=== PATIENT | female | born 1985 | race Caucasian/White ===

== ENCOUNTER 2019-04-27 16:30 | Inpatient (IN) | payer MEDICAID ==
[~2019-04-27] VITALS: Ht 165.1 cm; Wt 86.5 kg
[2019-04-27] MEDS ORDERED: LACTATED RINGER'S 1,000 ML IV PRN (22:20)
[2019-04-27] MEDS ORDERED: LIDOCAINE 1% (MPF) 30 ML INJ INJ PRN (22:30)
[2019-04-27] MEDS ORDERED: MISOPROSTOL 200 MCG TAB PR PRN (22:30)
[2019-04-27] MEDS ORDERED: OXYTOCIN 30 UNITS/LR 500 ML IV PRN (22:30)
[2019-04-27] MEDS ORDERED: BUTORPHANOL 2 MG INJ IV PRN (22:30)
[2019-04-27] MEDS ORDERED: OXYTOCIN 30 UNITS/LR 500 ML IV SCH (22:30)
[2019-04-27] MEDS ORDERED: CARBOPROST 250 MCG INJ IM PRN (22:30)
[2019-04-27] MEDS ORDERED: IBUPROFEN 600 MG TAB PO PRN (22:30)
[2019-04-27] MEDS ORDERED: AMPICILLIN 2 GM/NS (PMX) 100 ML IV ONE (22:30)
[2019-04-27] MEDS ORDERED: METHYLERGONOVINE 0.2 MG INJ IM PRN (22:30)
[2019-04-27] MEDS: LACTATED RINGER'S 1,000 ML IV SCH (23:14)
[2019-04-27 23:16] VITALS: BP 122/75; PULSE 90; RESP 18
[2019-04-27 23:18] VITALS: Ht 165.1 cm; Wt 86.5 kg
[2019-04-28] MEDS: MISOPROSTOL 50 MCG CAPSULE PO PRN ×4 (01:15→13:07)
[2019-04-28] MEDS: AMPICILLIN 1 GM/NS (PMX) 50 ML IV SCH ×5 (05:29→21:11)
[2019-04-28] MEDS: LACTATED RINGER'S 1,000 ML IV SCH ×2 (07:58→17:13)
--- NOTE | 2019-04-28 15:56 | PREAC ---
Date/Time of Note Date/Time of Note DATE: 04/28/19 TIME: 15:55 Anesthesia Eval and Record Evaluation Time Pre-Procedure Interview DATE: 04/28/19 TIME: 15:55 Age 34 Sex female NPO: 8 hrs Preoperative diagnosis LABOR PIAN Planned procedure LABOR EPIDURAL Past Medical History Past Medical History: Includes GI: Obesity : : (4), Para: (3), Gestational age: (40 5/7 WKS) Surgery & Anesthesia Issues No known issue Meds Anticoagulation: No Beta Yoandy within 24 hr: No Reason Beta Yoandy not given: Pt. not on B-Yoandy Current Medications Lactated Ringer's 1,000 ml @ 125 mls/hr Q8H IV Last administered on 04/28/19at 07:58; Admin Dose 125 MLS/HR; Start 04/27/19 at 22:20 Ampicillin 50 ml @ 100 mls/hr Q4H IV Last administered on 04/28/19at 13:07; Admin Dose 100 MLS/HR; Start 04/28/19 at 02:30 Butorphanol Tartrate (Stadol) 2 mg Q2H PRN IV .PAIN SCALE 6-10; Start 04/27/19 at 22:30 Lidocaine (Xylocaine 1% (Mpf)) 30 ml ONCE PRN INJ .EPISIOTOMY; Start 04/27/19 at 22:30 Oxytocin/Lactated Ringer's 500 ml @ 500 mls/hr ONCE POST IV ; Start 04/27/19 at 22:30 Oxytocin/Lactated Ringer's 500 ml @ 125 mls/hr POST IV ; Start 04/27/19 at 22:30 Ibuprofen (Motrin) 600 mg ONCE PRN PO .PAIN 1-5; Start 04/27/19 at 22:30 Lactated Ringer's 1,000 ml @ 2,000 mls/hr Q30M PRN IV .ANESTHESIA Last admi nistered on 04/28/19at 15:37; Admin Dose 2,000 MLS/HR; Start 04/27/19 at 22:20 Oxytocin/Lactated Ringer's 500 ml @ 0 mls/hr ONCE PRN IV .VAGINAL BLEEDING; Start 04/27/19 at 22:30 Methylergonovine Maleate (Methergine) 0.2 mg ONCE PRN IM .VAGINAL BLEEDING; Start 04/27/19 at 22:30 Carboprost Tromethamine (Hemabate) 250 mcg ONCE PRN IM .VAGINAL BLEEDING; Start 04/27/19 at 22:30 Misoprostol (Cytotec) 1,000 mcg ONCE PRN [place] .VAGINAL BLEEDING; Start 04/27/19 at 22:30 Misoprostol (Cytotec 50 Mcg Capsule) 50 mcg Q4H PRN PO CERVICAL RIPENING Last administered on 04/28/19at 13:07; Admin Dose 50 MCG; Start 04/28/19 at 01:30 Meds reviewed: Yes Allergies Coded Allergies: No Known Allergies (Verified Allergy, Unknown, 04/27/19) Allergies Reviewed: Yes Labs/Studies Labs Reviewed: Reviewed by anesthesiologist Result Diagram: 04/27/19 2310 Laboratory Tests 04/27/19 23:10 Blood Bank Test 04/27/19 23:10 Antibody Screen NEGATIVE Blood Type O POSITIVE Rh Immune Globulin Candidate NO test: N/A Pre-procedure Exam Last vitals Vital Signs Date Temp Pulse Resp B/P (MAP) Pulse Ox O2 O2 Flow FiO2 Time Delivery Rate 04/27/19 98.8 90 18 122/75 Room Air 23:16 (91) Airway: Adequate mouth opening, Adequate thyromental dist Mallampati: Mallampati II Teeth: Normal Lung: Normal Heart: Normal ASA Physical Status ASA physical status: 2 Emergency: None Planned Anesthetic Neuraxial: Epidural Planned Pain Management Epidural Pre-operative Attestations Prior to commencing anesthesia and surgery, the patient was re-evaluated, there was verification of: *The patient's identity *The results of appropriate recent lab work and preoperative vital signs *The above evaluation not changing prior to induction *Anesthetic plan, risk benefits, alternative and complications discussed with patient/family; questions answered; patient/family understands, accepts and wishes to proceed. Fuentes Wiggins M.D. Apr 28, 2019 15:56
[2019-04-28] MEDS ORDERED: NALOXONE (0.4 MG/ML) INJ IV PRN ×2 (16:00→20:00)
[2019-04-28] MEDS ORDERED: DIPHENHYDRAMINE 50 MG INJ IV PRN ×2 (16:00→20:00)
[2019-04-28] MEDS ORDERED: ONDANSETRON 4 MG INJ IV PRN ×2 (16:00→20:00)
[2019-04-28] MEDS ORDERED: TRIMETHOBENZAMIDE 100 MG/ML VIAL IM PRN ×2 (16:00→20:00)
[2019-04-28] MEDS ORDERED: FENTAnyl 2MCG/ML-ROPIV 0.2% 100 ML ONE (16:11)
--- NOTE | 2019-04-28 16:32 | PAC ---
Date/Time of Note Date/Time of Note DATE: 04/28/19 TIME: 16:32 Post-Anesthesia Notes Post-Anesthesia Note Last documented vital signs Vital Signs Date Temp Pulse Resp B/P (MAP) Pulse Ox O2 O2 Flow FiO2 Time Delivery Rate 04/27/19 98.8 90 18 122/75 Room Air 23:16 (91) Activity: WNL Respiratory function: WNL Cardiovascular function: WNL Mental status: Baseline Pain reasonably controlled: Yes Hydration appropriate: Yes Nausea/Vomiting absent: Yes Fuentes Wiggins M.D. Apr 28, 2019 16:32
[2019-04-28] MEDS ORDERED: FENTAnyl 2MCG/ML-ROPIV 0.2% 100 ML BAG EPI SCH (20:00)
--- NOTE | 2019-04-28 21:05 | HP ---
DATE OF ADMISSION: 04/27/2019 HISTORY OF PRESENT ILLNESS: Ms. Lisa Hebert is a 34-year-old 4, para 3, EDC of 04/23/2019 intrauterine at 40 weeks and 5 days gestational age, was admitted for post-EDC induction, c urrently on Cytotec for cervical ripening. She denies any headache, nausea, vomiting, shortness of b reath or visual changes. She had her care at [facility]. PAST MEDICAL HISTORY: None. MEDICATIONS: vitamins. PAST SURGICAL HISTORY: None. OBSTETRIC HISTORY: x3 vaginal deliveries. GYNECOLOGIC HISTORY: 12, regular 3 to 4 days. Denies any sexually transmitted infections. Sexually active with 1 partner. SOCIAL HISTORY: Denies any smoking, drugs or alcohol. FAMILY HISTORY: None. REVIEW OF SYSTEMS: All within normal except history of present illness. PHYSICAL EXAMINATION: HEENT: Within normal. LUNGS: CTA bilateral. CARDIOVASCULAR: S1, S2. Regular rate, rhythm. ABDOMEN: Gravid, nontender. Negative CVA bilateral. EXTREMITIES: Negative edema. No calf tenderness. PELVIC: Vaginal exam: 9 cm dilated, 100% effaced, -1 station. heart tracing category 1. Venancio o: Regular contractions. ASSESSMENT: Intrauterine at term in labor. PLAN: Anticipate vaginal delivery. Dictated By: RITU BORGES/NEREIDA Conf#: [id number] DID#: [id number]
[2019-04-28] MEDS: OXYTOCIN 30 UNITS/LR 500 ML IV SCH (23:44)
[2019-04-28] MEDS ORDERED: OXYTOCIN 30 UNITS/LR 500 ML IV SCH (23:45)
--- NOTE | 2019-04-28 23:45 | LDN ---
Date/Time of Note Date/Time of Note DATE: 04/28/19 TIME: 23:43 Delivery Summary Weeks of Gestation 40 Placenta Delivered: Spontaneously Meconium: none Perineal laceration: 1 Laceration repair: 1st degree perineal laceration repair with 4-0 chromic Anesthesia type: Epidural Estimated blood loss: 300 Sponge & Needle done & correct: Yes All needle counts correct: Yes Any foreign bodies felt in the: No Infant Delivery Information Sex Infant Sex: male Apgars 1 Minute: 8 5 Minute: 9 10 Minute: 9 Suctioning Nose & mouth suctioned at leon: No Delee suction performed: No Umbilical Cord Umbilical cord with: 3 Vessels Cord presentations: no nuchal cord Cord Blood was obtained: Yes RITU STEVENSON MD Apr 28, 2019 23:45
[2019-04-29] MEDS ORDERED: OXYCODONE/ASPIRIN (4.88/325) TAB PO PRN ×2
[2019-04-29] MEDS ORDERED: CARBOPROST 250 MCG INJ IM PRN
[2019-04-29] MEDS ORDERED: OXYTOCIN 30 UNITS/LR 500 ML IV PRN
[2019-04-29] MEDS ORDERED: MISOPROSTOL 200 MCG TAB PR PRN
[2019-04-29] MEDS ORDERED: NACL 0.9% 3 ML SYG IV SCH
[2019-04-29] MEDS ORDERED: METHYLERGONOVINE 0.2 MG INJ IM PRN
[2019-04-29] MEDS ORDERED: ONDANSETRON 4 MG INJ IV PRN
[2019-04-29] MEDS: OXYTOCIN 30 UNITS/LR 500 ML IV SCH (00:28)
[2019-04-29 01:20] VITALS: BP 121/71; PULSE 85; RESP 18
[2019-04-29 04:00] VITALS: BP 128/63; PULSE 83; RESP 19
[2019-04-29] MEDS: WITCH HAZEL/GLYCERIN PAD PR PRN (04:38)
[2019-04-29] MEDS: BENZOCAINE 20% 56 ML SPRAY TOP PRN (04:38)
[2019-04-29] MEDS: IBUPROFEN 600 MG TAB PO SCH ×4 (04:38→17:56)
[2019-04-29 08:00] VITALS: BP 106/63; PULSE 80; RESP 18
[2019-04-29] MEDS: SENNA/DOCUSATE NA (8.6MG/50MG) TAB PO SCH (08:57)
--- NOTE | 2019-04-29 11:33 | DS ---
Date/Time of Note Date/Time of Note DATE: 04/29/19 TIME: 11:32 Obstetrical Discharge Record Final Diagnosis Final Diagnosis: Term delivered Vaginal Delivery Obstetrical Delivery: Spontaneous, Laceration, Repaired Condition on Discharge Physical Assessment Last Vitals: stable afebrile Voiding: Yes Bowel Movement: Yes Breast: Soft, non-tender, Filling Fundus: Firm Abdomen and Incision: soft nt Calf Tenderness: No Patient Condition: Fair RITU STEVENSON MD Apr 29, 2019 11:33
--- NOTE | 2019-04-29 11:33 | PD.PPDC ---
WRAP CHECKER Discharge Instruction Condition [id number] Patient Condition: Oufft8c Fair Diet [id number] Diet: Vnwqm0x Resume Regular Diet Activity/Restrictions [id number] Activity: [id number] Normal Activity May Shower [id number] Restrictions: [id number] No Exercising No Lifting No Driving No Sexual Activity Nothing in the Vagina No Kevil No Tampons, douche Follow-up Follow-up with Physician: 3, Week/Weeks Return to clinic for [id number] DENTAL LABORATORY WORKER Instructions: [id number] Fever greater than 101 Chills Worsening abdominal pain Excessive Vaginal Bleeding More than 2 pads per hour Unable to tolerate diet [id number] OB Instructions: Vnprd6f Breast Tenderness Depression Blurried Vision Headache [id number] Surgical Instructions: Eptxq9g Incisional Drainage Incisional Redness RITU STEVENSON MD Apr 29, 2019 11:33
[2019-04-29 12:00] VITALS: BP 103/58; PULSE 64; RESP 18
[2019-04-29 15:50] VITALS: BP 90/51; PULSE 79; RESP 18
[2019-04-29 19:51] VITALS: BP 101/61; PULSE 82; RESP 18
[2019-04-30] MEDS: SENNA/DOCUSATE NA (8.6MG/50MG) TAB PO SCH ×2 (00:07→08:58)
[2019-04-30] MEDS: IBUPROFEN 600 MG TAB PO SCH ×3 (00:07→12:39)
[2019-04-30 04:09] VITALS: BP 109/63; PULSE 80; RESP 18
[2019-04-30 08:00] VITALS: BP 88/50; PULSE 73; RESP 20
[2019-04-30] MEDS: WITCH HAZEL/GLYCERIN PAD PR PRN (12:38)
[2019-04-30] MEDS: BENZOCAINE 20% 56 ML SPRAY TOP PRN (12:38)
--- NOTE | 2019-05-01 16:10 | DELSUM ---
Delivery Summary A-C Datetime Report Generated by CPN: 05/01/2019 16:10 DELIVERY PERSONNEL Slps: Marquez, Maria M MATERNAL INFORMATION Delivery Anesthesia: Epidural Medications in Delivery: Pitocin 30units in 500mL LR, Methergine 0.2mg IM Delivery QBL (ml): 300 Placenta Cultured: No Maternal Complications: None Other Maternal Complications: GBS+ LABOR SUMMARY EDC: 04/23/2019 00:00 No. Babies in Womb: 1 Attempted: No Labor Anesthesia: Epidural LABOR INFORMATION Reason for Induction: Postterm Onset of Labor: 04/28/2019 13:03 Complete Dilatation: 04/28/2019 21:40 Cervical Ripening Agents: Cytotec @ Group B Beta Strep: Positive Antibiotics # of Doses: 6 Antibiotics Time of Last Dose: 04/28/2019 21:11 Steroids Given: None Reason Steroids Not Administered: Not Applicable MEMBRANES Membranes Rupture Method: Spontaneous Rupture of Membranes: 04/28/2019 22:47 Length of Rupture (hr): 0.38 Amniotic Fluid Color: Bloody Amniotic Fluid Amount: Moderate Amniotic Fluid Odor: Normal STAGES OF LABOR Stage 1 hr: 8 Stage 1 min: 37 Stage 2 hr: 1 Stage 2 min: 30 Stage 3 hr: 0 Stage 3 min: 3 Total Time in Labor hr: 10 Total Time in Labor min: 10 VAGINAL DELIVERY Episiotomy: None Laceration Extension: First Degree Laceration Type: Perineal Laceration Repair: Yes Initial Vag Sponge Count: 10 Final Vag Sponge Count: 10 Initial Vag Sharps Count: 1 Final Vag Sharps Count: 2 Sponge Count Correct: Yes Sharps Count Correct: Yes Count Comment: 15 instruments 1 suture added BABY A INFORMATION Delivery Date/Time: 04/28/2019 23:10 Method of Delivery: Vaginal Born in Route : No : N/A Forceps: N/A Vacuum Extraction: N/A Shoulder Dystocia : No SHOULDER DYSTOCIA BABY A Delivery Date/Time: 04/28/2019 23:10 PRESENTATION/POSITION BABY A Presentation: Cephalic Cephalic Presentation: Vertex Breech Presentation: N/A PLACENTA INFORMATION BABY A Placenta Delivery Time : 04/28/2019 23:13 Placenta Method of Delivery: Spontaneous Placenta Status: Delivered SCORES BABY A Heart Rate 1 min: >100 bpm Resp Effort 1 min: Good Cry Reflex Irritability 1 min: Cough/Sneeze/Pulls Away Muscle Tone 1 min: Active Motion Color 1 min: Blue/Pale Resuscitation Effort 1 min: Tactile Stimulation SCORE 1 MIN: 8 Heart Rate 5 min: >100 bpm Resp Effort 5 min: Good Cry Reflex Irritability 5 min: Cough/Sneeze/Pulls Away Muscle Tone 5 min: Active Motion Color 5 min: Body [place], Extremit Blue Resuscitation Effort 5 min: N/A SCORE 5 MIN: 9 INFORMATION BABY A Gestational Age at Delivery: 40.5 Gestational Status: Full Term- 39- 40.6 Weeks Outcome : Liveborn, with signs of life Infant Condition : Stable Sex: Male IDENTIFICATION/MEDS BABY A ID Band Number: [id number] ID Band Location: Right Leg; Left Arm Sensor Applied: Yes Sensor Number: [id number] Sensor Location : Cord Clamp Vitamin K Given : Not Given Erythromycin Given: Not Given WEIGHT/LENGTH BABY A Birthweight (gm): 3645 Weight (lb): 8 Weight (oz): 1 Length (in): 19.25 Infant Length (cm): 48.90 CORD INFORMATION BABY A No. Cord Vessels: 3 Nuchal Cord : N/A Cord Blood Taken: Yes Infant Suction: Mouth; Nose ASSESSMENT BABY A Infant Complications: None Physical Findings at Delivery: Molding of the Head; [place] Spots Physical Findings- Other: [place] spots on lower back _ on right shoulder. Folded left ear. Raised lower gums. Respirations: Appears Normal Abstract Searcher/ALS Called : No Care By: THIEN Flores Transferred To: Remains with Mother
== END 2019-04-30 13:40 | disposition home or self-care (01) | DRG 807 ==
LOC: L-D 22:10 → PP1 04-29 01:24
PROVIDERS: ADMIT Obstetrics & Gynecology; ATTEND Obstetrics & Gynecology
PROC: 10E0XZZ Delivery of Products of Conception, External Approach (ICD-10-PCS; principal; 2019-04-28)
PROC: 0HQ9XZZ Repair Perineum Skin, External Approach (ICD-10-PCS; 2019-04-28)
DX: O48.0 Post-term pregnancy (principal); Z37.0 Single live birth; O70.0 First degree perineal laceration during delivery; Z3A.40 40 weeks gestation of pregnancy
CPT/HCPCS: 62322; 76815; 85025; 85610; 85730; 86592; 86850; 86900; 86901; J0290; J2210; J2590; J3010; J7120